=== PATIENT | male | born 1960 | race American Indian/Alaskan Native ===

== ENCOUNTER 2019-09-08 14:55 | Emergency (ER) | payer MEDICARE ==
[2019-09-08] MEDS ORDERED: SODIUM CHLORIDE 0.9% 1000 ML IV SOLN IV ONE (19:08)
[2019-09-08 19:17] LABS: Basophils # (Auto) 0.1 K/mm3 (0.0-0.1); Basophils % (Auto) 0.7 % (0.0-1.8); Eosinophils # (Auto) 0.4 K/mm3 (0.0-0.4); Eosinophils % (Auto) 4.5 % (0.0-4.3); Hematocrit 34.6 % (35.5-45.6); Hemoglobin 11.1 gm/dl (11.8-15.2); Lymphocytes # (Auto) 1.6 K/mm3 (1.2-5.4); Lymphocytes % (Auto) 17.2 % (13.4-35.0); Mean Corpuscular HGB Conc 32 % (32-34); Mean Corpuscular Volume 101 fl (84-94); Monocytes # (Auto) 0.8 K/mm3 (0.0-0.8); Monocytes % (Auto) 8.7 % (0.0-7.3); Platelet Count 189 K/mm3 (140-440); Red Blood Count 3.43 M/mm3 (3.65-5.03); Red Cell Distribution Width 18.6 % (13.2-15.2)
--- NOTE | 2019-09-08 19:26 | Emergency Department Report ---
HPI - General Chief Complaint: Weakness Time Seen by Provider: 09/08/19 19:08 - HPI HPI: Room 20 Patient is a 59-year-old male present with chief complaint of of lower extremity weakness and paresthesia. The patient has a history of peripheral vascular disease and states he saw his vascular surgeon 2 days ago for procedure. The patient states he was at hemodialysis today and was found to be hypotensive. The patient states when walking to the parking lot he was moving slowly and his legs again felt heavy like they have done in the past. Patient states he also had pain and numbness in his legs which is also happened in the past. Patient states he then got to the point where he cannot move his leg for 1 hour. EMS was called and administered IV fluids. The patient states the pain and numbness in his legs have improved and he is able to move his legs without difficulty currently. Patient complains of his chronic numbness and pain in his feet. Patient denies any history of fever or cough. Patient denies shortness of breath. ED Past Medical Hx - Past Medical History Hx Hypertension: Yes Hx Congestive Heart Failure: Yes Hx Renal Disease: Yes (on dialysis) Additional medical history: CAD - Surgical History Additional Surgical History: Dialysis graft right upper arm - Family History Family history: no significant - Social History Smoking Status: Never Smoker Substance Use Type: None (Denies illicit drug use), Alcohol (Occasional) - Medications Home Medications: Home Medications Medication Instructions Recorded Confirmed Last Taken Type Cinacalcet HCl [Sensipar] 60 mg PO DAILY 12/04/12 01/02/15 12/26/12 21:00 History Gabapentin 100 mg PO QHS 12/04/12 01/02/15 12/26/12 21:00 History Isosorbide Mononitrate [Isosorbide 30 mg PO DAILY 12/04/12 01/02/15 12/26/12 09:00 History Mononitrate ER] Omeprazole [First-Omeprazole] 20 mg PO QDAY 12/04/12 01/02/15 12/26/12 08:00 History atenoloL [Tenormin] 50 mg PO DAILY 12/04/12 01/02/15 12/26/12 08:00 History traMADoL [Ultram 50 MG tab] 50 mg PO Q6HR PRN 12/27/12 01/02/15 12/27/12 08:30 History ED Review of Systems ROS: Stated complaint: WEAKNESS Other details as noted in HPI Constitutional: no symptoms reported. denies: fever Respiratory: denies: cough, shortness of breath Endocrine: no symptoms reported Gastrointestinal: denies: abdominal pain Musculoskeletal: myalgia. denies: back pain Neurological: paresthesias Physical Exam - Physical Exam Vital Signs: Vital Signs 09/08/19 15:17 Temperature 98.9 F Pulse Rate 101 H Respiratory 20 Rate Blood Pressure 93/66 [Right] O2 Sat by Pulse 100 Oximetry Physical Exam: GENERAL: The patient is well-developed well-nourished male lying on stretcher not appearing to be in acute distress. [] HEENT: Normocephalic. Atraumatic. Extraocular motions are intact. Patient has moist mucous membranes. NECK: Supple. Trachea midline CHEST/LUNGS: Clear to auscultation. There is no respiratory distress noted. HEART/CARDIOVASCULAR: Regular. There is no tachycardia. There is no gallop rub or murmur. Pedal pulses present bilaterally ABDOMEN: Abdomen is soft, nontender. Patient has normal bowel sounds. There is no abdominal distention. SKIN: There is no rash. There is no edema. There is no diaphoresis. NEURO: The patient is awake, alert, and oriented. The patient is cooperative. The patient has no focal neurologic deficits. The patient has normal speech. P atient complains of paresthesias to the bilateral feet MUSCULOSKELETAL: There is no evidence of acute injury. ED Course Vital Signs 09/08/19 15:17 Temperature 98.9 F Pulse Rate 101 H Respiratory 20 Rate Blood Pressure 93/66 [Right] O2 Sat by Pulse 100 Oximetry ED Medical Decision Making - Lab Data Result diagrams: 09/08/19 19:05 09/08/19 23:20 Laboratory Tests 09/08/19 09/08/19 09/08/19 19:05 19:05 23:20 WBC 9.4 RBC 3.43 L Hgb 11.1 L Hct 34.6 L MCV 101 H MCH 32 MCHC 32 RDW 18.6 H Plt Count 189 Lymph % (Auto) 17.2 [place] % (Auto) 8.7 H Eos % (Auto) 4.5 H Baso % (Auto) 0.7 Lymph # 1.6 [place] # 0.8 Eos # 0.4 Baso # 0.1 Seg Neutrophils % 68.9 Seg Neutrophils # 6.5 PT 13.5 INR 1.01 APTT 23.9 L Sodium 138 Potassium 4.8 Chloride 93.0 L Carbon Dioxide 29 Anion Gap 21 BUN 19 Creatinine 6.4 H Estimated GFR 11 BUN/Creatinine Ratio 3 Glucose 95 Calcium 10.6 H Total Bilirubin 0.80 AST 38 ALT 18 Alkaline Phosphatase 49 Total Protein 6.4 Albumin 4.0 Albumin/Globulin Ratio 1.7 - EKG Data -: EKG Interpreted by Me EKG shows normal: sinus rhythm Rate: normal - EKG Data When compared to previous EKG there are: no significant change Interpretation: unchanged when compared t (01/01/2015) - Differential Diagnosis Peripheral vascular disease, hypotension, hypovolemia Critical care attestation.: If time is entered above; I have spent that time in minutes in the direct care of this critically ill patient, excluding procedure time. ED Disposition Clinical Impression: Transient hypotension, ESRD (end stage renal disease) Disposition: DC- TO HOME OR SELFCARE Is pt being admited?: No Does the pt Need Aspirin: No Condition: Stable Instructions: Chronic Kidney Disease (ED) Additional Instructions: Return to the emergency department should you develop worsening symptoms, inability to tolerate food or liquids, high fever or any other concerns Referrals: ADARSH MOREL MD [Primary Care Provider] - 3-5 Days Time of Disposition: 00:10
[2019-09-08 19:28] LABS: INR 1.01 (0.87-1.13)
[2019-09-08 19:29] LABS: Partial Thromboplastin Time 23.9 Sec. (24.2-36.6)
--- NOTE | 2019-09-08 20:04 | XRay Report ---
CHEST 1 VIEW INDICATION / CLINICAL INFORMATION: Weakness, hypotension. COMPARISON: None available. FINDINGS: SUPPORT DEVICES: None. HEART / MEDIASTINUM: Changes of prior median sternotomy are noted. LUNGS / PLEURA: No significant pulmonary or pleural abnormality.. No pneumothorax. ADDITIONAL FINDINGS: No significant additional findings. IMPRESSION: 1. No acute findings. Signer Name: Sukhjinder Castro MD Signed: 09/08/2019 8:00 PM Workstation Name: [id number]
[2019-09-08 23:58] LABS: Calcium 10.6 mg/dL (8.4-10.2)
[2019-09-09 00:26] VITALS: BP 117/71
== END 2019-09-09 00:26 | disposition home or self-care (01) ==
LOC: ED 14:55
DX: I95.89 Other hypotension (principal); I13.2 Hypertensive heart and chronic kidney disease with heart failure and with stage 5 chronic kidney disease, or end stage renal disease; N18.6 End stage renal disease; I50.9 Heart failure, unspecified; Z99.2 Dependence on renal dialysis; Z79.899 Other long term (current) drug therapy
CPT/HCPCS: 36415; 71045; 80053; 85025; 85610; 85730; 93005